=== PATIENT | female | born 1975 | race Native Hawaiian/Other Pacific Islander ===

== ENCOUNTER 2017-09-20 05:39 | Emergency (ER) | payer OTHER ==
[~2017-09-20] VITALS: Ht 160 cm; Wt 170.1 kg
[~2017-09-20 05:39] MED LIST: A-HYDROCORT100 MG IJ; ACET-655 PO; ALPR0.5T24 PO; LEVO0.0218 PO; LEVO0.0529 PO; NORA-BE0.35 MG OR; ULTRAM50 MG OR; ZANTAC 75 PO
[2017-09-20 06:40] VITALS: BP 140/80; TEMP 98.3
== END 2017-09-20 06:42 | disposition home or self-care (01) ==
LOC: ED 05:39
DX: K04.7 Periapical abscess without sinus (principal)
CPT/HCPCS: 99281

== ENCOUNTER 2019-04-09 23:34 | Emergency (ER) | payer OTHER ==
[~2019-04-09] VITALS: Ht 160 cm; Wt 170.1 kg
[2019-04-10 00:45] LABS: PLATELET COUNT 300 K/uL (152-353)
[2019-04-10 00:54] LABS: POTASSIUM 3.9 mmol/L (3.6-5.2)
[2019-04-10 02:55] VITALS: BP 151/84; TEMP 97.5
== END 2019-04-10 02:55 | disposition home or self-care (01) ==
LOC: ED 23:34
PROVIDERS: Emergency Medicine
DX: J02.0 Streptococcal pharyngitis (principal)
CPT/HCPCS: 36415; 80053; 85027; 87502; 87651; 96360; 96372; 99284; J1885; Q9963